=== PATIENT | female | born 1990 | race Hispanic/Latino ===

== ENCOUNTER 2019-03-15 03:53 | Emergency (ER) | payer OTHER ==
[2019-03-15] MEDS ORDERED: OCTYL 2-CYANOACRYLATE 1 EACH TP ONE (04:17)
[2019-03-15] MEDS ORDERED: TETANUS/DIPHTHERIA TOXOID [ADULT] 0.5 ML VIAL IM ONE (04:17)
== END 2019-03-15 04:56 ==
LOC: EDH 03:53
DX: S71.111A Laceration without foreign body, right thigh, initial encounter (principal); K21.9 Gastro-esophageal reflux disease without esophagitis; Z88.0 Allergy status to penicillin; Z91.040 Latex allergy status; V49.49XA Driver injured in collision with other motor vehicles in traffic accident, initial encounter; Y93.89 Activity, other specified; Y92.89 Other specified places as the place of occurrence of the external cause; Y99.8 Other external cause status
CPT/HCPCS: 12001; 90471; 90714